=== PATIENT | female | born 1980 | race Caucasian/White ===

== ENCOUNTER 2016-09-15 07:51 | Inpatient (IN) | payer BC ==
[2016-09-15] MEDS ORDERED: Nalbuphine 20 MG/1 ML Amp IVPUSH PRN (10:02)
[2016-09-15] MEDS ORDERED: Lidocaine 1% 50 ML MDV INJECT ONE (10:02)
[2016-09-15] MEDS ORDERED: Sodium Chloride 0.9% 10 ML Syringe FLUSH PRN (10:02)
[2016-09-15] MEDS ORDERED: Oxytocin/Lactated Ringers 10 UNIT/1,000 ML BAG IV SCH (10:15)
[2016-09-15] MEDS: Lactated Ringers 1,000 ML IV SCH ×2 (11:24→13:00)
[2016-09-15] MEDS ORDERED: Bupivacaine 0.25% 10 ML SDV ONE (12:00)
[2016-09-15] MEDS ORDERED: fentaNYL 100 MCG/2 ML SDV ONE (13:00)
[2016-09-15] MEDS ORDERED: fentaNYL 100 MCG/2 ML SDV EPIDUR PRN (13:04)
[2016-09-15] MEDS ORDERED: ePHEDrine 50 MG/ML SDV IVPUSH PRN (13:04)
[2016-09-15] MEDS ORDERED: diphenhydrAMINE 50 MG/ML SDV IVPUSH PRN (13:04)
[2016-09-15] MEDS ORDERED: Bupivacaine/fentaNYL/NS 100 ML Bag EPIDUR SCH (13:15)
--- NOTE | 2016-09-15 13:26 | PCM.PREANE ---
Preanesthetic Assessment - Anesthesia/Transfusion/Family Hx Anesthesia History: Prior Anesthesia Without Reaction Family History of Anesthesia Reaction: No Transfusion History: No Prior Transfusion(s) - Review of Systems General: No Symptoms Pulmonary: No Symptoms Cardiovascular: No Symptoms Gastrointestinal: Nausea Neurological: No Symptoms Other: Reports: None - Physical Assessment O2 Sat by Pulse Oximetry: 98 Respiratory Rate: 16 Vital Signs: Last Vital Signs Temp 98.7 F 09/15/16 10:20 Pulse 81 09/15/16 10:20 Resp 16 09/15/16 10:20 BP 116/76 09/15/16 10:20 Pulse Ox 98 09/15/16 10:20 Height: 5 ft 6 in Weight: 79.56 kg ASA Class: 2 Mental Status: Alert & Oriented x3 Airway Class: Mallampati = 1 Dentition: Reports: Normal Dentition Thyro-Mental Finger Breadths: 3 Mouth Opening Finger Breadths: 3 ROM/Head Extension: Full Lungs: Clear to auscultation, Normal respiratory effort Cardiovascular: Regular Rate, Regular Rhythm - Lab Values: Laboratory Last Values WBC 9.02 K/mm3 (3.98-10.04) 09/15/16 10:20 RBC 4.42 M/mm3 (3.98-5.22) 09/15/16 10:20 Hgb 13.3 gm/L (11.2-15.7) 09/15/16 10:20 Hct 38.9 % (34.1-44.9) 09/15/16 10:20 MCV 88.0 fl (79.4-94.8) 09/15/16 10:20 MCH 30.1 pg (25.6-32.2) 09/15/16 10:20 MCHC 34.2 g/dl (32.2-35.5) 09/15/16 10:20 RDW Std Deviation 42.4 fL (36.4-46.3) 09/15/16 10:20 Plt Count 183 K/mm3 (182-369) 09/15/16 10:20 MPV 10.6 fl (9.4-12.3) 09/15/16 10:20 Neut % (Auto) 71.2 % (34.0-71.1) H 09/15/16 10:20 Lymph % (Auto) 18.7 % (19.3-51.7) L 09/15/16 10:20 [place] % (Auto) 8.9 % (4.7-12.5) 09/15/16 10:20 Eos % (Auto) 0.4 (0.7-5.8) L 09/15/16 10:20 Baso % (Auto) 0.2 % (0.1-1.2) 09/15/16 10:20 Neut # (Auto) 6.42 K/mm3 (1.56-6.13) H 09/15/16 10:20 Lymph # (Auto) 1.69 K/mm3 (1.18-3.74) 09/15/16 10:20 [place] # (Auto) 0.80 K/mm3 (0.24-0.36) H 09/15/16 10:20 Eos # (Auto) 0.04 K/mm3 (0.04-0.36) 09/15/16 10:20 Baso # (Auto) 0.02 K/mm3 (0.01-0.08) 09/15/16 10:20 Urine Color Yellow (Yellow) 09/15/16 09:06 Urine Appearance Slt cloudy (Clear) H 09/15/16 09:06 Urine pH 6.5 (5.0-8.0) 09/15/16 09:06 Ur Specific [place] 1.020 (1.005-1.030) 09/15/16 09:06 Urine Protein Trace (Negative) H 09/15/16 09:06 Urine Glucose (UA) Negative (Negative) 09/15/16 09:06 Urine Ketones Negative (Negative) 09/15/16 09:06 Urine Occult Blood 2+ (Negative) H 09/15/16 09:06 Urine Nitrite Negative (Negative) 09/15/16 09:06 Urine Bilirubin Negative (Negative) 09/15/16 09:06 Urine Urobilinogen 0.2 (0.2-1.0) 09/15/16 09:06 Ur Leukocyte Esterase 2+ (Negative) H 09/15/16 09:06 - Allergies Allergies/Adverse Reactions: Allergies Allergy/AdvReac Type Severity Reaction Status Date / Time Penicillins Allergy Rash Verified 09/15/16 12:21 - Blood Blood Available: No - Acknowledgements Anesthesia Type Planned: Epidural Pt an Appropriate Candidate for the Planned Anesthesia: Yes Alternatives and Risks of Anesthesia Discussed w Pt/Guardian: Yes Pt/Guardian Understands and Agrees with Anesthesia Plan: Yes PreAnesthesia Questionnaire Cardiovascular History: Reports: None Respiratory History: Reports: None Gastrointestinal History: Reports: GERD (with preg) 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: , Other (see below) : 2 (39 weeks) Para: 1 Other OB/BYN History: Used clomid for current Musculoskeletal History: Reports: None - Past Surgical History Other HEENT Surgeries/Procedures: wisdom teeth extraction Other Musculoskeletal Surgeries/Procedures:: knee surgery x 2 - SUBSTANCE USE Smoking Status *Q: Never Smoker Tobacco Use Within Last Twelve Months: No Second Hand Smoke Exposure: No Days Per Week of Alcohol Use: 2 Recreational Drug Use History: No - HOME MEDS Home Medications: Home Meds Vit No.124/Iron/FA [ Vitamin Tablet] 1 each PO DAILY 03/07/15 [ History] Ondansetron [Zofran ODT] 4 mg PO Q4H 09/15/16 [History] Promethazine [Phenergan] 0.5 ml TOP ASDIRECTED 09/15/16 [History] - CURRENT (IN HOUSE) MEDS Current Meds: Current Medications Diphenhydramine HCl (Benadryl) 25 mg IVPUSH Q6H PRN PRN Reason: pruritis Ephedrine Sulfate (Ephedrine Sulfate) 5 mg IVPUSH ASDIRECTED PRN PRN Reason: Hypotension Fentanyl (Sublimaze) 100 mcg EPIDUR Q3H PRN PRN Reason: Pain Fentanyl/Bupivacaine HCl (Fentanyl/Bupivacaine/Ns 2 Mcg-0.125% 100 Ml) 100 ml EPIDUR ASDIRECTED [facility] Lactated Ringer's (Ringers, Lactated) 1,000 mls @ 100 mls/hr IV ASDIRECTED [facility] Last Admin: 09/15/16 13:00 Dose: 100 mls/hr Oxytocin/Lactated Ringer's (Pitocin In Lr 10 Units/1,000 Ml) 10 unit in 1,000 mls @ 500 mls/hr IV TITRATE SUJEY Vancomycin HCl 1 gm/ Sodium (Chloride) 250 mls @ 250 mls/hr IV Q12H [facility] Last Admin: 09/15/16 11:25 Dose: 250 mls/hr Nalbuphine HCl (Nubain) 10 mg IVPUSH Q2H PRN PRN Reason: Pain (moderate 4-6) Sodium Chloride (Saline Flush) 10 ml FLUSH ASDIRECTED PRN PRN Reason: Keep Vein Open Discontinued Medications Fentanyl (Sublimaze) Confirm Administered Dose 100 mcg .ROUTE .STK-MED ONE Stop: 09/15/16 13:01 Lidocaine HCl (Xylocaine 1%) 20 ml INJECT ONETIME ONE Stop: 09/15/16 10:03
--- NOTE | 2016-09-15 18:05 | PCM.LDHP ---
L&D History of Present Illness - General Date of Service: 09/15/16 Admit Problem/Dx: Patient Status Order with Admit Dx/Problem 09/15/16 10:02 Patient Status [ADT] Routine Admission Diagnosis/Problem Admission Diagnosis/Problem Normal labor 09/15/16 17:56 38-6/7 week intrauterine , early active labor, advanced cervical dilation of 6 cm/90% effaced/-3/posterior/very soft Source of Information: Patient History Limitations: Reports: No limitations - History of Present Illness Introduction:: Jessi is a 35-year-old 2 para 1001 white female was admitted on 2016 in early labor with advanced cervical dilation. Her cervix was found to be 6 cm, 90% effaced, -3 station, posterior position and very soft in clinic for visit this morning. She is having irregular contractions. She was sent to labor and delivery to undergo her artificial rupture membranes for augmentation of labor. 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 SMITH is 09/23/2016 is based on a certain last was restarted 12/18/2015. Patient had definite last menstrual period onset. She is not using any control time conception. She had menarche at age 16. Cycles Q6 weeks. HCG was positive on 01/13/2016. Patient has one previous delivery on 03/07/2015 at 39-4/7 weeks gestational age. 7 lbs. 14 oz. female infant born via spontaneous vaginal delivery. course has been relatively unremarkable. She had an at number depression screen score of 2 on 05/13/2016. She declined genetic screening. Group B strep screen was positive, patient is allergic to penicillin from which she gets a rash, the group B strep is resistant to clindamycin but susceptible to vancomycin. Patient desired epidural in labor and delivery. She plans to breast-feed. The patient was seen early in the at approximately 11 weeks gestational age on 03/04/2006. She was seen on a regular basis made good fundal height growth. Her vital signs remained stable throughout the course. Her weight gain was from 155 pounds to 175 pounds for a 20 pound gain. Laboratory testing and included a blood type of O+. Negative antibody screen. They with a pursestring of visit were 248,000. She is rubella immune. RPR is nonreactive. Urine culture was unremarkable. Hepatitis B and HIV assays were negative. Her second trimester labs included a hemoglobin of 12.6. MCV was 91.6. Platelets were 189,000. Diabetic screening test was 1 16 mg/dL. Group B strep screen was positive as above. Allergies: penicillin which causes a rash Medications: 1. Zofran when necessary for nausea 2. vitamins daily 3. Her meds E. and topical gel for nausea when necessary. Past medical history: 1. Secondary infertility 2. Normal spontaneous vaginal delivery in 2014. Past surgical history: 1. Knee surgery on the left and right in 2000 2013 respectively 2. [place] tooth extraction 2001 Family history: Maternal uncle with mild cognitive challenges. Mother is alive with hyperlipidemia and paroxysmal atrial fibrillation. Father is alive and well. One brother and 2 sisters are alive and well. Maternal grandmother is alive with paroxysmal atrial fibrillation. Paternal grandfather is secondary to alcohol abuse. Paternal grandmother is alive with depression. Paternal grandfather secondary to etiopathic emphysema. One daughter is alive and well. Social history: patient is . is Colin. 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 She is not using significant amounts of alcohol, drugs or tobacco. She lives in [place]. Review of systems: Skin-negative HEENT-negative Cardiovascular-negative Rester rate-normal Breasts-changes secondary to only GI-normal -changes associated with Musculoskeletal-normal Neurological system-unremarkable Physical exam: Height is 5 feet 6. Pregravid weight is 155. Weight today was 175. Blood pressure today 116/70. heart rate 1:30. In general the patient is a well-developed well-nourished pleasant female stated age in no acute distress. Skin warm and dry without lesions. Cleared of the soft in all ashley. HEENT, neck and back within normal limits. Cardiovascular exam shows regular rate and rhythm without murmurs. Lungs are clear with good breath sounds in all ashley. Breasts exam is deferred. Patient does plan to nurse. Fundal height is 38 cm consistent with dates. Cervix is as described above. Extremities show minimal edema Neurological exam grossly within normal limits Pain Score: 8 - Related Data Allergies/Adverse Reactions: Allergies Allergy/AdvReac Type Severity Reaction Status Date / Time Penicillins Allergy Rash Verified 09/15/16 12:21 Home Medications: Home Meds Vit No.124/Iron/FA [ Vitamin Tablet] 1 each PO DAILY 03/07/15 [ History] Ondansetron [Zofran ODT] 4 mg PO Q4H 09/15/16 [History] Promethazine [Phenergan] 0.5 ml TOP ASDIRECTED 09/15/16 [History] Past Medical History Cardiovascular History: Reports: None Respiratory History: Reports: None Gastrointestinal History: Reports: GERD (with preg) 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: , Other (see below) Other OB/BYN History: Used clomid for current Musculoskeletal History: Reports: None - Past Surgical History Other HEENT Surgeries/Procedures: wisdom teeth extraction Other Musculoskeletal Surgeries/Procedures:: knee surgery x 2 Social & Family History - Family History Family Medical History: Noncontributory - Tobacco Use Smoking Status *Q: Never Smoker Second Hand Smoke Exposure: No - Caffeine Use Caffeine Use: Reports: Soda Other Caffeine Use: one daily - Alcohol Use Days Per Week of Alcohol Use: 2 - Recreational Drug Use Recreational Drug Use: No H&P Review of Systems - Review of Systems: Review Of Systems: See Below L&D Exam - Exam Exam: See Below - Vital Signs Vital Signs: Last Vital Signs Temp 37.1 C 09/15/16 10:20 Pulse 81 09/15/16 10:20 Resp 16 09/15/16 13:26 BP 116/76 09/15/16 10:20 Pulse Ox 98 09/15/16 13:26 Weight: 79.56 kg - Patient Data Lab Results last 24 hrs: Laboratory Results - last 24 hr 09/15/16 09/15/16 Range/Units 09:06 10:20 WBC 9.02 (3.98-10.04) K/mm3 RBC 4.42 (3.98-5.22) M/mm3 Hgb 13.3 (11.2-15.7) gm/L Hct 38.9 (34.1-44.9) % MCV 88.0 (79.4-94.8) fl MCH 30.1 (25.6-32.2) pg MCHC 34.2 (32.2-35.5) g/dl RDW Std Deviation 42.4 (36.4-46.3) fL Plt Count 183 (182-369) K/mm3 MPV 10.6 (9.4-12.3) fl Neut % (Auto) 71.2 H (34.0-71.1) % Lymph % (Auto) 18.7 L (19.3-51.7) % [place] % (Auto) 8.9 (4.7-12.5) % Eos % (Auto) 0.4 L (0.7-5.8) Baso % (Auto) 0.2 (0.1-1.2) % Neut # (Auto) 6.42 H (1.56-6.13) K/mm3 Lymph # (Auto) 1.69 (1.18-3.74) K/mm3 [place] # (Auto) 0.80 H (0.24-0.36) K/mm3 Eos # (Auto) 0.04 (0.04-0.36) K/mm3 Baso # (Auto) 0.02 (0.01-0.08) K/mm3 Urine Color Yellow (Yellow) Urine Appearance Slt cloudy H (Clear) Urine pH 6.5 (5.0-8.0) Ur Specific [place] 1.020 (1.005-1.030) Urine Protein Trace H (Negative) Urine Glucose (UA) Negative (Negative) Urine Ketones Negative (Negative) Urine Occult Blood 2+ H (Negative) Urine Nitrite Negative (Negative) Urine Bilirubin Negative (Negative) Urine Urobilinogen 0.2 (0.2-1.0) Ur Leukocyte Esterase 2+ H (Negative) Result Diagrams: 09/15/16 10:20 Problem List Initiated/Reviewed/Updated: Yes Orders Last 24hrs: Active Orders 24 hr Category Date Time Status Patient Status [ADT] Routine ADT 09/15/16 10:02 Active Activity as Tolerated [RC] PFP Care 09/15/16 10:02 Active Communication Order [RC] ASDIRECTED Care 09/15/16 10:02 Active Notify Provider [RC] ASDIRECTED Care 09/15/16 13:04 Active Notify Provider [RC] PFP Care 09/15/16 10:02 Active Notify Provider [RC] PRN Care 09/15/16 10:02 Active Vital Signs [RC] 04,12,20 Care 09/15/16 10:02 Active Regular Diet [DIET] Diet 09/15/16 Lunch Active Bupivacaine/fentaNYL/NS [fentaNYL/Bupivacaine/NS 2 MCG- Med 09/15/16 13:15 Active 0.125% 100 ML] 100 ml EPIDUR ASDIRECTED Lactated Ringers [Ringers, Lactated] 1,000 ml Med 09/15/16 10:15 Active IV ASDIRECTED Nalbuphine [Nubain] Med 09/15/16 10:02 Active 10 mg IVPUSH Q2H PRN Oxytocin/Lactated Ringers [Pitocin in LR 10 Units/1,000 Med 09/15/16 10:15 Active ML] 10 unit in 1,000 ml IV TITRATE Sodium Chloride 0.9% [Saline Flush] Med 09/15/16 10:02 Active 10 ml FLUSH ASDIRECTED PRN Vancomycin [Vancocin] 1 gm Med 09/15/16 10:15 Active Sodium Chloride 0.9% [Normal Saline] 250 ml IV Q12H diphenhydrAMINE [Benadryl] Med 09/15/16 13:04 Active 25 mg IVPUSH Q6H PRN ePHEDrine [ePHEDrine Sulfate] Med 09/15/16 13:04 Active 5 mg IVPUSH ASDIRECTED PRN fentaNYL [Sublimaze] Med 09/15/16 13:04 Active 100 mcg EPIDUR Q3H PRN Electronic Heart Tones Ext w TOCO [WOMSER] Oth 09/15/16 10:02 Ordered Routine Electronic Heart Tones Internal [WOMSER] Per Unit Oth 09/15/16 10:02 Ordered Routine Peripheral IV Insertion Adult [OM.PC] Routine Oth 09/15/16 10:02 Ordered Resuscitation Status Routine Resus Stat 09/15/16 10:02 Ordered Medication Orders Diphenhydramine HCl (Benadryl) 25 mg IVPUSH Q6H PRN PRN Reason: pruritis Ephedrine Sulfate (Ephedrine Sulfate) 5 mg IVPUSH ASDIRECTED PRN PRN Reason: Hypotension Fentanyl (Sublimaze) 100 mcg EPIDUR Q3H PRN PRN Reason: Pain Last Admin: 09/15/16 13:35 Dose: 100 mcg Fentanyl/Bupivacaine HCl (Fentanyl/Bupivacaine/Ns 2 Mcg-0.125% 100 Ml) 100 ml EPIDUR ASDIRECTED [facility] Last Admin: 09/15/16 13:35 Dose: 100 ml Lactated Ringer's (Ringers, Lactated) 1,000 mls @ 100 mls/hr IV ASDIRECTED [facility] Last Admin: 09/15/16 13:00 Dose: 100 mls/hr Infusion: 09/15/16 13:00 Dose: 100 mls/hr Admin: 09/15/16 11:24 Dose: 100 mls/hr Oxytocin/Lactated Ringer's (Pitocin In Lr 10 Units/1,000 Ml) 10 unit in 1,000 mls @ 500 mls/hr IV TITRATE [facility] Last Admin: 09/15/16 14:28 Dose: 500 mls/hr Vancomycin HCl 1 gm/ Sodium (Chloride) 250 mls @ 250 mls/hr IV Q12H [facility] Last Admin: 09/15/16 11:25 Dose: 250 mls/hr Nalbuphine HCl (Nubain) 10 mg IVPUSH Q2H PRN PRN Reason: Pain (moderate 4-6) Sodium Chloride (Saline Flush) 10 ml FLUSH ASDIRECTED PRN PRN Reason: Keep Vein Open Assessment/Plan Comment:: Assessment: 1. 38-6/7 week intrauterine , early active labor, advanced cervical dilation 2. Group B strep screen positive-penicillin allergic-GBS resistant to clindamycin-needs vancomycin for prophylaxis 3. Plans to nurse. 4. Open epidural in labor and delivery. Plan: 1. Anticipate normal spontaneous vaginal delivery 2. Vancomycin for group B strep prophylaxis 3. Intact monitoring 4. Epidural when necessary 5. Support nursing decision.
--- NOTE | 2016-09-15 18:10 | PCM.SN ---
- Free Text/Narrative Note: Delivery note: Jessi is a 35-year-old 2 now para 2002 white female who was seen in clinic today with early contractions. She's on the sixth and is dilated, 90% effaced, -3 station, posterior position, very soft, cephalic presentation. She was sent to labor and delivery at time she was started on IV antibiotics of vancomycin. The patient then had artificial rupture membranes and progressed rapidly to complete. She delivered a viable, linares, male in an occiput anterior position at 1428 hours on 09/15/2016. Baby weight 3250 g (7 pounds 2.6 ounces), had Apgars of 7 and 9 and was 20 inches in length. The baby's nose and mouth were bulb suctioned and he was placed on patient's abdomen. Cord was clamped x2 and cut by the father. Cord blood was obtained. Placenta delivered in a [place] presentation. It appeared to be intact and complete. There was a three-vessel cord. Pitocin was administered after delivery of the baby via the IV. Estimated blood loss 100 cc. Patient's condition: Good
[2016-09-15] MEDS: Benzocaine/Cetylpyridinium/Menthol Lozenge MUCMEM PRN (20:31)
[2016-09-15] MEDS: Ibuprofen 600 MG Tab PO PRN (21:53)
[2016-09-16] MEDS: Benzocaine/Cetylpyridinium/Menthol Lozenge MUCMEM PRN ×3 (03:11→22:50)
[2016-09-16] MEDS: Ibuprofen 600 MG Tab PO PRN ×3 (03:12→19:03)
--- NOTE | 2016-09-16 06:28 | PCM.SN ---
- Free Text/Narrative Note: The patient is doing fine this morning. She has minimal lochia. She is ambulating well. She is voiding without concerns. Breast-feeding was going fine. Patient is afebrile. Vital signs stable. Abdomen is soft, uterus is firm and at the umbilicus. Uterus is nontender. Lower extremities without significant edema or other concerns. Assessment/plan: day 1. Doing well. Group B strep screen positive-1 dose of antibiotics-vancomycin. We'll have patient states all tomorrow for full 2 days of evaluation because of group B-positive status. Recommend routine cares.
--- NOTE | 2016-09-16 08:08 | PCM48HPAN ---
Post Anesthesia Note - EVALUATION WITHIN 48HRS OF ANESTHETIC Vital Signs in Normal Range: Yes Patient Participated in Evaluation: Yes Respiratory Function Stable: Yes Airway Patent: Yes Cardiovascular Function Stable: Yes Hydration Status Stable: Yes Pain Control Satisfactory: Yes Nausea and Vomiting Control Satisfactory: Yes Mental Status Recovered: Yes
[2016-09-16] MEDS ORDERED: Acetaminophen 325 MG Tab PO PRN (14:07)
[2016-09-17] MEDS: Ibuprofen 600 MG Tab PO PRN ×2 (03:45→11:07)
[2016-09-17] MEDS: Benzocaine/Cetylpyridinium/Menthol Lozenge MUCMEM PRN ×3 (03:47→11:07)
--- NOTE | 2016-09-17 07:09 | PCM.PNPP ---
- General Info Date of Service: 09/17/16 Functional Status: Reports: pain controlled, tolerating diet, ambulating, urinating - Review of Systems General: Reports: No Symptoms Pulmonary: Reports: no symptoms Cardiovascular: Reports: No Symptoms Gastrointestinal: Reports: No symptoms Genitourinary: Reports: no symptoms Musculoskeletal: Reports: no symptoms Neurological: Reports: No Symptoms - Patient Data Vital Signs - most recent: Last Vital Signs Temp 36.6 C 09/16/16 20:58 Pulse 59 L 09/16/16 20:58 Resp 16 09/16/16 20:58 BP 97/79 09/16/16 20:58 Pulse Ox 99 09/16/16 20:58 Weight - most recent: 79.56 kg Lab Results - last 24 hrs: Laboratory Results - last 24 hr 09/16/16 Range/Units 17:28 WBC 7.45 (3.98-10.04) K/mm3 RBC 4.11 (3.98-5.22) M/mm3 Hgb 12.4 (11.2-15.7) gm/L Hct 36.8 (34.1-44.9) % MCV 89.5 (79.4-94.8) fl MCH 30.2 (25.6-32.2) pg MCHC 33.7 (32.2-35.5) g/dl RDW Std Deviation 43.0 (36.4-46.3) fL Plt Count 173 L (182-369) K/mm3 MPV 10.4 (9.4-12.3) fl Med Orders - Current: Current Medications Acetaminophen (Tylenol) 650 mg PO Q4H PRN PRN Reason: Pain Last Admin: 09/16/16 14:35 Dose: 650 mg Benzocaine/Menthol (Cepacol Sore Throat) 1 lozenge MUCMEM Q2H PRN PRN Reason: Sore Throat Last Admin: 09/17/16 03:47 Dose: 1 lozenge Ephedrine Sulfate (Ephedrine Sulfate) 5 mg IVPUSH ASDIRECTED PRN PRN Reason: Hypotension Fentanyl (Sublimaze) 100 mcg EPIDUR Q3H PRN PRN Reason: Pain Last Admin: 09/15/16 13:35 Dose: 100 mcg Fentanyl/Bupivacaine HCl (Fentanyl/Bupivacaine/Ns 2 Mcg-0.125% 100 Ml) 100 ml EPIDUR ASDIRECTED [facility] Last Admin: 09/15/16 13:35 Dose: 100 ml Lactated Ringer's (Ringers, Lactated) 1,000 mls @ 100 mls/hr IV ASDIRECTED [facility] Last Admin: 09/15/16 13:00 Dose: 100 mls/hr Oxytocin/Lactated Ringer's (Pitocin In Lr 10 Units/1,000 Ml) 10 unit in 1,000 mls @ 500 mls/hr IV TITRATE [facility] Last Admin: 09/15/16 14:28 Dose: 500 mls/hr Ibuprofen (Motrin) 600 mg PO Q6H PRN PRN Reason: Pain Last Admin: 09/17/16 03:45 Dose: 600 mg Nalbuphine HCl (Nubain) 10 mg IVPUSH Q2H PRN PRN Reason: Pain (moderate 4-6) Sodium Chloride (Saline Flush) 10 ml FLUSH ASDIRECTED PRN PRN Reason: Keep Vein Open Discontinued Medications Diphenhydramine HCl (Benadryl) 25 mg IVPUSH Q6H PRN PRN Reason: pruritis Fentanyl (Sublimaze) Confirm Administered Dose 100 mcg .ROUTE .STK-MED ONE Stop: 09/15/16 13:01 Last Admin: 09/15/16 15:28 Dose: Not Given Vancomycin HCl 1 gm/ Sodium (Chloride) 250 mls @ 250 mls/hr IV Q12H [facility] Last Admin: 09/15/16 11:25 Dose: 250 mls/hr Lidocaine HCl (Xylocaine 1%) 20 ml INJECT ONETIME ONE Stop: 09/15/16 10:03 Last Admin: 09/15/16 15:28 Dose: Not Given - Infant Interaction Disposition, : [place] to Nursery Interaction: Holding Infant Feeding: Breastfed ; Nursed Well Support Person: - Recovery Exam Fundal Tone: Firm Fundal Level: 2 Fingerbreadths Below Umbilicus Fundal Placement: Midline Lochia Amount: Scant Lochia Color: Rubra/Red Perineum Description: Intact, Minimal Bruising/Swelling Episiotomy/Laceration: None Bladder Status: Voiding Urinary Elimination: Voided - Exam General: alert, oriented, cooperative Abdomen: soft, no tenderness Extremities: no edema Skin: warm, dry, intact - Problem List & Annotations (1) 38 weeks gestation of SNOMED Code(s): 15731114 Code(s): Z3A.38 - 38 WEEKS GESTATION OF Status: Acute Current Visit: Yes (2) Vaginal delivery SNOMED Code(s): 081531736 Code(s): O80 - ENCOUNTER FOR FULL-TERM UNCOMPLICATED DELIVERY Status: Acute Current Visit: Yes - Problem List Review Problem List Initiated/Reviewed/Updated: Yes - My Orders Last 24 Hours: My Active Orders 09/16/16 14:07 Acetaminophen [Tylenol] 650 mg PO Q4H PRN - Assessment Assessment:: 35 y/o PPD#2 from - Plan Plan:: * Routine cares * Discharge home today
--- NOTE | 2016-09-17 07:10 | PCM.DCSUM1 ---
Discharge Summary - Discharge Data Discharge Date: 09/17/16 Discharge Disposition: Home, Self-Care 01 Condition: Good - Patient Summary/Data Complications: None Consults: None Recommended Follow-up Testing/Procedures: Follow up with Dr. Cueva in 5-6 weeks for check Hospital Course: 35 y/o admitted at 38 6/7 wks with advanced cervical dilation. She was AROM'd and then had a fast progression to complete dilation and underwent an uncomplicated . See delivery note. she did well and was discharged home on PPD#2. - Patient Instructions Diet: Regular Diet as Tolerated Activity: As Tolerated Driving: May Drive Today Showering/Bathing: May Shower Showering/Bathing, Other: May Bathe Notify Provider of: Fever, Increased Pain, Swelling and Redness, Drainage, Nausea and/or Vomiting - Discharge Plan Home Medications: Home Meds Vit No.124/Iron/FA [ Vitamin Tablet] 1 each PO DAILY 03/07/15 [ History] Referrals: Reddy Cueva MD [Physician] - (5-6 weeks for check ) - Discharge Summary/Plan Comment DC Time >30 min.: No - Patient Data Vitals - Most Recent: Last Vital Signs Temp 36.6 C 09/16/16 20:58 Pulse 59 L 09/16/16 20:58 Resp 16 09/16/16 20:58 BP 97/79 09/16/16 20:58 Pulse Ox 99 09/16/16 20:58 Weight - Most Recent: 79.56 kg Lab Results - Last 24 hrs: Laboratory Results - last 24 hr 09/16/16 Range/Units 17:28 WBC 7.45 (3.98-10.04) K/mm3 RBC 4.11 (3.98-5.22) M/mm3 Hgb 12.4 (11.2-15.7) gm/L Hct 36.8 (34.1-44.9) % MCV 89.5 (79.4-94.8) fl MCH 30.2 (25.6-32.2) pg MCHC 33.7 (32.2-35.5) g/dl RDW Std Deviation 43.0 (36.4-46.3) fL Plt Count 173 L (182-369) K/mm3 MPV 10.4 (9.4-12.3) fl Med Orders - Current: Current Medications Acetaminophen (Tylenol) 650 mg PO Q4H PRN PRN Reason: Pain Last Admin: 09/16/16 14:35 Dose: 650 mg Benzocaine/Menthol (Cepacol Sore Throat) 1 lozenge MUCMEM Q2H PRN PRN Reason: Sore Throat Last Admin: 09/17/16 03:47 Dose: 1 lozenge Ephedrine Sulfate (Ephedrine Sulfate) 5 mg IVPUSH ASDIRECTED PRN PRN Reason: Hypotension Fentanyl (Sublimaze) 100 mcg EPIDUR Q3H PRN PRN Reason: Pain Last Admin: 09/15/16 13:35 Dose: 100 mcg Fentanyl/Bupivacaine HCl (Fentanyl/Bupivacaine/Ns 2 Mcg-0.125% 100 Ml) 100 ml EPIDUR ASDIRECTED [facility] Last Admin: 09/15/16 13:35 Dose: 100 ml Lactated Ringer's (Ringers, Lactated) 1,000 mls @ 100 mls/hr IV ASDIRECTED [facility] Last Admin: 09/15/16 13:00 Dose: 100 mls/hr Oxytocin/Lactated Ringer's (Pitocin In Lr 10 Units/1,000 Ml) 10 unit in 1,000 mls @ 500 mls/hr IV TITRATE [facility] Last Admin: 09/15/16 14:28 Dose: 500 mls/hr Ibuprofen (Motrin) 600 mg PO Q6H PRN PRN Reason: Pain Last Admin: 09/17/16 03:45 Dose: 600 mg Nalbuphine HCl (Nubain) 10 mg IVPUSH Q2H PRN PRN Reason: Pain (moderate 4-6) Sodium Chloride (Saline Flush) 10 ml FLUSH ASDIRECTED PRN PRN Reason: Keep Vein Open Discontinued Medications Diphenhydramine HCl (Benadryl) 25 mg IVPUSH Q6H PRN PRN Reason: pruritis Fentanyl (Sublimaze) Confirm Administered Dose 100 mcg .ROUTE .STK-MED ONE Stop: 09/15/16 13:01 Last Admin: 09/15/16 15:28 Dose: Not Given Vancomycin HCl 1 gm/ Sodium (Chloride) 250 mls @ 250 mls/hr IV Q12H [facility] Last Admin: 09/15/16 11:25 Dose: 250 mls/hr Lidocaine HCl (Xylocaine 1%) 20 ml INJECT ONETIME ONE Stop: 09/15/16 10:03 Last Admin: 09/15/16 15:28 Dose: Not Given *Q Meaningful Use (DIS) - VTE *Q VTE Criteria *Q: - Stroke *Q Stroke Criteria *Q: - AMI *Q AMI Criteria *Q:
[2016-09-17 11:17] VITALS: BP 124/87
== END 2016-09-17 11:10 | disposition home or self-care (01) | DRG 560 ==
LOC: JD.OB 07:51 → JD.WOMH 07:51 → JD.OB 09:45 → JD.WOMH 10:01 → JD.OB 10:02 → OBSVTOIN 14:28
PROVIDERS: ADMIT Obstetrics & Gynecology; ATTEND Obstetrics & Gynecology
PROC: 10E0XZZ Delivery of Products of Conception, External Approach (ICD-10-PCS; principal; 2016-09-15)
PROC: 10907ZC Drainage of Amniotic Fluid, Therapeutic from Products of Conception, Via Natural or Artificial Opening (ICD-10-PCS; 2016-09-15)
PROC: 00HU33Z Insertion of Infusion Device into Spinal Canal, Percutaneous Approach (ICD-10-PCS; 2016-09-15)
PROC: 3E0R3CZ (ICD-10-PCS; 2016-09-15)
DX: O99.824 Streptococcus B carrier state complicating childbirth (principal); Z3A.39 39 weeks gestation of pregnancy; Z37.0 Single live birth; Z88.0 Allergy status to penicillin
CPT/HCPCS: 01967; 36415; 81003; 85025; 85027; A9270-GY; J2590; J3010; J3370; J7050; J7120

== ENCOUNTER 2016-09-25 11:38 | Inpatient (IN) | payer BC ==
[2016-09-25] MEDS ORDERED: cefOXitin 2 GM in Sodium Chloride 0.9% 100 ML IV ONE (12:58)
--- NOTE | 2016-09-25 13:05 | PCM.SN ---
- Free Text/Narrative Note: ER Note: Patient admitted with endometritis O86.12 and pyrexia puerperal O86.4 SEE History and Physical
[2016-09-25] MEDS ORDERED: Misoprostol 200 MCG Tab PO ONE ×2 (13:14→15:23)
[2016-09-25] MEDS ORDERED: Lactated Ringers 500 ML IV ONE ×2 (13:15→15:23)
--- NOTE | 2016-09-25 13:16 | PCM.LDHP ---
L&D History of Present Illness - General Date of Service: 09/25/16 Admit Problem/Dx: Admission Diagnosis/Problem Admission Diagnosis/Problem Endometritis Source of Information: Patient History Limitations: Reports: No limitations - History of Present Illness Introduction:: 35-year-old , delivered on 09/15/16. GBS positive, delivered by Dr. Cueva. At 38 weeks 6 days estimated gestational age with SMITH of 09/23/16 present to [facility] with history of waking up this morning, approximate 5: 00 with fever, chills, and temperature at [place], clinic 101, point, elevated white count E. patient's has had a history of ureteral stones in the past. After her last delivery. The patient had low backache on her left side, moving around to the left lower quadrant and no increased bloody flow from the lochia. Patient did receive one dose of vancomycin during labor, but progress slowed rapidly. The second dose was not able to be given. Patient is, breast- feeding. She's had no breast tenderness other than engorgement as is time to feed. The baby. The patient has had no dysuria, frequency, or urgency. However, urine culture will be obtained as will lochia. Culture and swabs of the lochia for wet prep and aerobic, anaerobic, blood cultures also ordered. Patient has history of allergy to penicillin developing a rash. No history of anaphylaxis. I discussed with her that Mefoxin 2 grams IV and q6h would be a good antibiotic choic initially as possibly endometritis due to GBS. Patient aware of possible cross reaction with history of penicillin allergy and first dose will be given while in ER and patient observed for reaction for an hour before moving to [place]. Discussed with Dr Samuel and he agreed to watch patient while in ER. Improves with: Reports: None Worsens with: Reports: None Associated Symptoms: Reports: N - Related Data Allergies/Adverse Reactions: Allergies Allergy/AdvReac Type Severity Reaction Status Date / Time Penicillins Allergy Rash Verified 09/25/16 11:55 Home Medications: Home Meds Vit No.124/Iron/FA [ Vitamin Tablet] 1 each PO DAILY 03/07/15 [ History] Past Medical History Cardiovascular History: Reports: None Respiratory History: Reports: None Gastrointestinal History: Reports: [employer] History: Reports: , Other (see below) Other OB/BYN History: Used clomid for current Musculoskeletal History: Reports: None - Past Surgical History Other HEENT Surgeries/Procedures: wisdom teeth extraction Other Musculoskeletal Surgeries/Procedures:: knee surgery x 2 Social & Family History - Family History Family Medical History: Noncontributory - Tobacco Use Smoking Status *Q: Never Smoker Second Hand Smoke Exposure: No - Caffeine Use Caffeine Use: Reports: None Other Caffeine Use: one daily - Alcohol Use Days Per Week of Alcohol Use: 2 - Recreational Drug Use Recreational Drug Use: No H&P Review of Systems - Review of Systems: Review Of Systems: See Below General: Reports: fever, chills HEENT: Reports: no symptoms Pulmonary: Reports: No Symptoms Cardiovascular: Reports: no symptoms Gastrointestinal: Reports: No symptoms Genitourinary: Reports: pain, vaginal discharge Musculoskeletal: Reports: no symptoms Skin: Reports: no symptoms Psychiatric: Reports: no symptoms Neurological: Reports: No Symptoms Hematologic/Lymphatic: Reports: no symptoms Immunologic: Reports: no symptoms L&D Exam - Exam Exam: See Below - Vital Signs Vital Signs: Last Vital Signs Temp 98.9 F 09/25/16 11:49 Pulse 107 H 09/25/16 11:49 Resp 18 09/25/16 11:49 BP 132/90 09/25/16 11:49 Pulse Ox 98 09/25/16 11:49 Weight: 153 lb - OB Specific Fundal Height in cm: 14 (involuting normally) - Exam General: alert, oriented HEENT: Mucosa moist & pink Neck: supple, trachea midline Lungs: Clear to auscultation, Normal respiratory effort, Other (no evidence of mastitis no erythema or collection, there is engorgement but patient due to nurse) Cardiovascular: regular rate, regular rhythm Abdomen: normal bowel sounds, soft Genitourinary: Enlarged uterus (but involuting normally, slightly "boddy" and tender to palpation.) Back Exam: normal inspection, full range of motion (no CVA tenderness) Extremities: normal inspection Skin: warm (feels "hot" but normal temp in ER but elevated at [facility]), dry, intact Psychiatric: alert, normal affect, normal mood - Problem List (1) Puerperal endometritis, condition or complication SNOMED Code(s): 661545889 ICD Code: O86.12 - ENDOMETRITIS FOLLOWING DELIVERY Status: Acute Current Visit: Yes (2) Pyrexia, puerperal Status: Acute Current Visit: Yes Problem List Initiated/Reviewed/Updated: No Orders Last 24hrs: Active Orders 24 hr Category Date Time Status Patient Status Manage Transfer [TRANSFER] Routine ADT 09/25/16 12:46 Active Vit with Ca/FA/Iron [ Plus Iron] Med 09/26/16 09:00 Active 1 each PO DAILY cefOXitin [Mefoxin] 2 gm Med 09/25/16 12:58 Active Sodium Chloride 0.9% [Normal Saline] 100 ml IV ONETIME Medication Orders Cefoxitin Sodium 2 gm/ Sodium (Chloride) 100 mls @ 200 mls/hr IV ONETIME ONE Stop: 09/25/16 13:27 Prenat Multivit/[place]/Iron/Folic Ac ( Plus Iron) 1 each PO DAILY [facility] Assessment/Plan Comment:: Admit ([facility] [place] reviewed by Criss to confirm admission vs Observation) IV hydration and antibiotic treatment
[2016-09-25] MEDS ORDERED: cefOXitin 2 GM in Premix Bag 1 BAG IV ONE (13:32)
[2016-09-25] MEDS ORDERED: Ondansetron 4 MG/2 ML SDV IVPUSH PRN (15:23)
[2016-09-25] MEDS: Lactated Ringers 1,000 ML IV SCH (17:44)
[2016-09-25] MEDS ORDERED: cefOXitin 2 GM in Sodium Chloride 0.9% 100 ML IV SCH (19:00)
[2016-09-25] MEDS: Misoprostol 200 MCG Tab PO SCH (21:03)
[2016-09-25] MEDS: Acetaminophen 325 MG Tab PO PRN (21:03)
[2016-09-26] MEDS ORDERED: cefOXitin 2 GM in Premix Bag 1 BAG IV SCH ×4 (03:37→21:00)
[2016-09-26] MEDS: cefOXitin 2 GM in Premix Bag 1 BAG IV SCH ×5 (05:03→20:44)
[2016-09-26] MEDS: Misoprostol 200 MCG Tab PO SCH ×4 (05:03→20:45)
[2016-09-26] MEDS: Acetaminophen 325 MG Tab PO PRN ×2 (08:29→19:20)
[2016-09-26] MEDS: Lactated Ringers 1,000 ML IV SCH (08:30)
[2016-09-26] MEDS: Prenatal Multivitamin with Calcium/Folic Acid/Iron Tab PO SCH (08:31)
--- NOTE | 2016-09-26 10:56 | PCM.PN ---
- General Info Date of Service: 09/26/16 Admission Dx/Problem (Free Text): Admission Diagnosis/Problem Admission Diagnosis/Problem Endometritis Functional Status: Reports: pain controlled - Review of Systems General: Reports: Fever (last evening) HEENT: Reports: no symptoms Pulmonary: Reports: no symptoms Cardiovascular: Reports: No Symptoms Gastrointestinal: Reports: Diarrhea Genitourinary: Reports: no symptoms, other (uterus less tender) Musculoskeletal: Reports: no symptoms Skin: Reports: no symptoms Neurological: Reports: No Symptoms Psychiatric: Reports: no symptoms - Patient Data Vitals - most recent: Last Vital Signs Temp 99.6 F 09/26/16 08:29 Pulse 97 09/26/16 04:04 Resp 16 09/26/16 04:04 BP 112/67 09/26/16 04:04 Pulse Ox 98 09/26/16 04:04 Weight - most recent: 158 lb 9.6 oz I&O - last 24 hours: Intake & Output 09/25/16 09/26/16 09/26/16 22:59 06:59 14:59 Intake Total 300 325 240 Output Total 1000 Balance 300 -675 240 [place] Results last 24 hrs: Microbiology 09/25/16 13:36 Aerobic Blood Culture - Preliminary Blood - Venous - Lab Draw Gram Positive Cocci In Chains Med Orders - Current: Current Medications Acetaminophen (Tylenol) 650 mg PO Q4H PRN PRN Reason: Fever Last Admin: 09/26/16 08:29 Dose: 650 mg Lactated Ringer's (Ringers, Lactated) 1,000 mls @ 150 mls/hr IV ASDIRECTED [facility] Last Admin: 09/26/16 08:30 Dose: 150 mls/hr Cefoxitin Sodium 2 gm/ Premix 50 mls @ 100 mls/hr IV Q6H [facility] Last Admin: 09/26/16 08:28 Dose: 100 mls/hr Misoprostol (Cytotec) 200 mcg PO Q6H [facility] Last Admin: 09/26/16 08:29 Dose: 200 mcg Ondansetron HCl (Zofran) 4 mg IVPUSH Q4H PRN PRN Reason: Nausea Prenat Multivit/[place]/Iron/Folic Ac ( Plus Iron) 1 each PO DAILY [facility] Last Admin: 09/26/16 08:31 Dose: Not Given Discontinued Medications Cefoxitin Sodium 2 gm/ Sodium (Chloride) 100 mls @ 200 mls/hr IV ONETIME ONE Stop: 09/25/16 13:27 Last Admin: 09/25/16 16:09 Dose: Not Given Lactated Ringer's (Ringers, Lactated) 500 mls @ 500 mls/hr IV .BOLUS ONE Stop: 09/25/16 14:14 Last Admin: 09/25/16 13:34 Dose: 500 mls/hr Cefoxitin Sodium 2 gm/ Premix 50 mls @ 100 mls/hr IV ONETIME ONE Stop: 09/25/16 14:01 Last Admin: 09/25/16 13:43 Dose: 100 mls/hr Lactated Ringer's (Ringers, Lactated) 500 mls @ 500 mls/hr IV .BOLUS ONE Stop: 09/25/16 16:22 Last Admin: 09/25/16 16:08 Dose: Not Given Cefoxitin Sodium 2 gm/ Sodium (Chloride) 100 mls @ 200 mls/hr IV Q6H [facility] Last Admin: 09/25/16 21:11 Dose: Not Given Cefoxitin Sodium 2 gm/ Premix 50 mls @ 100 mls/hr IV Q6HR [facility] Last Admin: 09/25/16 21:03 Dose: 100 mls/hr Cefoxitin Sodium 2 gm/ Premix 50 mls @ 100 mls/hr IV Q6HR [facility] Cefoxitin Sodium 2 gm/ Premix 50 mls @ 100 mls/hr IV Q6HR [facility] Cefoxitin Sodium 2 gm/ Premix 50 mls @ 100 mls/hr IV Q6HR [facility] Last Admin: 09/26/16 06:40 Dose: Not Given Cefoxitin Sodium 2 gm/ Premix 50 mls @ 100 mls/hr IV Q6HR [facility] Misoprostol (Cytotec) 200 mcg PO ONETIME ONE Stop: 09/25/16 13:15 Last Admin: 09/25/16 13:33 Dose: 200 mcg Misoprostol (Cytotec) 200 mcg PO ONETIME ONE Stop: 09/25/16 15:24 Last Admin: 09/25/16 16:09 Dose: Not Given - Exam General: alert, oriented HEENT: Mucous membr. moist/pink Neck: supple Lungs: Clear to auscultation, Normal respiratory effort Cardiovascular: Regular Rate, Regular Rhythm Abdomen: bowel sounds present, soft, no tenderness, no distension (Female) Exam: Other (uterus less tender) Back Exam: normal inspection, full range of motion Extremities: no edema Skin: warm, dry, intact Wound/Incisions: healing well Neurological: no new focal deficit Psy/Mental Status: alert, normal affect, normal mood - Problem List & Annotations (1) Puerperal endometritis, condition or complication SNOMED Code(s): 063089885 Code(s): O86.12 - ENDOMETRITIS FOLLOWING DELIVERY Status: Acute Current Visit: Yes (2) Pyrexia, puerperal Status: Acute Current Visit: Yes - Problem List Review Problem List Initiated/Reviewed/Updated: No - My Orders Last 24 Hours: My Active Orders 09/25/16 12:40 CULTURE GENITAL [RM] Stat 09/25/16 13:13 Blood Culture x2 Reflex Set [OM.PC] Stat 09/25/16 13:28 CULTURE BLOOD [BC] Stat 09/25/16 13:36 CULTURE BLOOD [BC] Stat 09/25/16 15:23 Communication Order [RC] ASDIRECTED Height and Weight [RC] 04 Intake and Output [RC] 04,16 Vital Signs [RC] Q4HR Acetaminophen [Tylenol] 650 mg PO Q4H PRN Ondansetron [Zofran] 4 mg IVPUSH Q4H PRN Blood Culture x2 Reflex Set [OM.PC] Stat 09/25/16 17:45 Lactated Ringers [Ringers, Lactated] 1,000 ml IV ASDIRECTED 09/25/16 18:22 Antiembolic Devices [RC] PER UNIT ROUTINE SCD [Sequential Compression Device] [OM.PC] Routine 09/25/16 21:00 Misoprostol [Cytotec] 200 mcg PO Q6H 09/25/16 Dinner Regular Diet [DIET] 09/26/16 09:00 Vit with Ca/FA/Iron [ Plus Iron] 1 each PO DAILY cefOXitin [Mefoxin in Dextrose,Iso-Osm 2 GM/50 ML] 2 gm Premix Bag 1 bag IV Q6H - Assessment Assessment:: Add probiotics Continue Mefoxin 2 grams IV q6g possibly po antibiotics tomorrow possibly home Tuesday - Plan Plan:: Ad[place] [place] [facility] to confirm admission vs Observation) IV hydration and antibiotic treatment
[2016-09-26] MEDS: Saccharomyces Boulardii (Probiotic) 250 MG Cap PO SCH ×2 (12:05→20:45)
[2016-09-27] MEDS: cefOXitin 2 GM in Premix Bag 1 BAG IV SCH ×2 (03:03→08:25)
[2016-09-27] MEDS: Misoprostol 200 MCG Tab PO SCH ×2 (03:04→08:26)
[2016-09-27] MEDS: Saccharomyces Boulardii (Probiotic) 250 MG Cap PO SCH ×2 (08:26→20:29)
[2016-09-27] MEDS: Prenatal Multivitamin with Calcium/Folic Acid/Iron Tab PO SCH (08:26)
--- NOTE | 2016-09-27 08:35 | PCM.PN ---
- General Info Date of Service: 09/27/16 Functional Status: Reports: pain controlled - Review of Systems General: Reports: Fever (last evening 100.9 decreased from day before of 101.3) HEENT: Reports: no symptoms Pulmonary: Reports: no symptoms Cardiovascular: Reports: No Symptoms Gastrointestinal: Reports: No symptoms Genitourinary: Reports: pain (c/o less pain in area of uterus) Musculoskeletal: Reports: no symptoms Skin: Reports: no symptoms Neurological: Reports: No Symptoms Psychiatric: Reports: no symptoms - Patient Data Vitals - most recent: Last Vital Signs Temp 98.4 F 09/27/16 07:54 Pulse 101 H 09/27/16 07:54 Resp 16 09/27/16 07:54 BP 99/72 09/27/16 07:54 Pulse Ox 99 09/27/16 07:54 Weight - most recent: 158 lb 9.6 oz I&O - last 24 hours: Intake & Output 09/26/16 09/27/16 09/27/16 22:59 06:59 14:59 Intake Total 1050 900 Output Total 900 1100 Balance 150 -200 Lab Results last 24 hrs: Laboratory Results - last 24 hr 09/26/16 09/27/16 Range/Units 10:57 05:45 WBC 8.14 7.64 (3.98-10.04) K/mm3 RBC 4.31 4.39 (3.98-5.22) M/mm3 Hgb 13.1 13.2 (11.2-15.7) gm/L Hct 38.5 39.2 (34.1-44.9) % MCV 89.3 89.3 (79.4-94.8) fl MCH 30.4 30.1 (25.6-32.2) pg MCHC 34.0 33.7 (32.2-35.5) g/dl RDW Std Deviation 41.4 41.7 (36.4-46.3) fL Plt Count 193 205 (182-369) K/mm3 MPV 9.1 L 9.2 L (9.4-12.3) fl Neut % (Auto) 69.7 70.1 (34.0-71.1) % Lymph % (Auto) 19.9 18.6 L (19.3-51.7) % [place] % (Auto) 9.8 9.9 (4.7-12.5) % Eos % (Auto) 0.4 L 1.0 (0.7-5.8) Baso % (Auto) 0.2 0.3 (0.1-1.2) % Neut # (Auto) 5.67 5.35 (1.56-6.13) K/mm3 Lymph # (Auto) 1.62 1.42 (1.18-3.74) K/mm3 [place] # (Auto) 0.80 H 0.76 H (0.24-0.36) K/mm3 Eos # (Auto) 0.03 L 0.08 (0.04-0.36) K/mm3 Baso # (Auto) 0.02 0.02 (0.01-0.08) K/mm3 [place] Results last 24 hrs: Microbiology 09/25/16 13:36 Aerobic Blood Culture - Preliminary Blood - Venous - Lab Draw Beta Streptococcus Group B Anaerobic Blood Culture - Preliminary NO GROWTH AFTER 1 DAY 09/25/16 13:28 Aerobic Blood Culture - Preliminary Blood - Venous NO GROWTH AFTER 1 DAY Anaerobic Blood Culture - Preliminary NO GROWTH AFTER 1 DAY Med Orders - Current: Current Medications Acetaminophen (Tylenol) 650 mg PO Q4H PRN PRN Reason: Fever Last Admin: 09/26/16 19:20 Dose: 650 mg Ondansetron HCl (Zofran) 4 mg IVPUSH Q4H PRN PRN Reason: Nausea Prenat Multivit/[place]/Iron/Folic Ac ( Plus Iron) 1 each PO DAILY [facility] Last Admin: 09/27/16 08:26 Dose: Not Given Saccharomyces Boulardii (Florastor) 250 mg PO BID [facility] Last Admin: 09/27/16 08:26 Dose: 250 mg Discontinued Medications Cefoxitin Sodium 2 gm/ Sodium (Chloride) 100 mls @ 200 mls/hr IV ONETIME ONE Stop: 09/25/16 13:27 Last Admin: 09/25/16 16:09 Dose: Not Given Lactated Ringer's (Ringers, Lactated) 500 mls @ 500 mls/hr IV .BOLUS ONE Stop: 09/25/16 14:14 Last Admin: 09/25/16 13:34 Dose: 500 mls/hr Cefoxitin Sodium 2 gm/ Premix 50 mls @ 100 mls/hr IV ONETIME ONE Stop: 09/25/16 14:01 Last Admin: 09/25/16 13:43 Dose: 100 mls/hr Lactated Ringer's (Ringers, Lactated) 500 mls @ 500 mls/hr IV .BOLUS ONE Stop: 09/25/16 16:22 Last Admin: 09/25/16 16:08 Dose: Not Given Cefoxitin Sodium 2 gm/ Sodium (Chloride) 100 mls @ 200 mls/hr IV Q6H [facility] Last Admin: 09/25/16 21:11 Dose: Not Given Lactated Ringer's (Ringers, Lactated) 1,000 mls @ 150 mls/hr IV ASDIRECTED [facility] Last Admin: 09/26/16 08:30 Dose: 150 mls/hr Cefoxitin Sodium 2 gm/ Premix 50 mls @ 100 mls/hr IV Q6HR [facility] Last Admin: 09/25/16 21:03 Dose: 100 mls/hr Cefoxitin Sodium 2 gm/ Premix 50 mls @ 100 mls/hr IV Q6HR [facility] Cefoxitin Sodium 2 gm/ Premix 50 mls @ 100 mls/hr IV Q6HR [facility] Cefoxitin Sodium 2 gm/ Premix 50 mls @ 100 mls/hr IV Q6HR [facility] Last Admin: 09/26/16 06:40 Dose: Not Given Cefoxitin Sodium 2 gm/ Premix 50 mls @ 100 mls/hr IV Q6HR [facility] Cefoxitin Sodium 2 gm/ Premix 50 mls @ 100 mls/hr IV Q6H [facility] Last Admin: 09/27/16 08:25 Dose: 100 mls/hr Misoprostol (Cytotec) 200 mcg PO ONETIME ONE Stop: 09/25/16 13:15 Last Admin: 09/25/16 13:33 Dose: 200 mcg Misoprostol (Cytotec) 200 mcg PO ONETIME ONE Stop: 09/25/16 15:24 Last Admin: 09/25/16 16:09 Dose: Not Given Misoprostol (Cytotec) 200 mcg PO Q6H [facility] Last Admin: 09/27/16 08:26 Dose: Not Given - Exam General: alert, oriented HEENT: Mucous membr. moist/pink Abdomen: bowel sounds present, soft, no tenderness, no distension (Female) Exam: Normal external exam, Normal speculum exam, Normal bimanual exam, Enlarged uterus (involuting normally), Uterine tenderness (almost gone much less tender than admission) Extremities: no edema Skin: warm, dry, intact Psy/Mental Status: alert, normal affect, normal mood - Problem List & Annotations (1) Puerperal endometritis, condition or complication SNOMED Code(s): 584282590 Code(s): O86.12 - ENDOMETRITIS FOLLOWING DELIVERY Status: Acute Current Visit: Yes (2) Pyrexia, puerperal Status: Acute Current Visit: Yes (3) Sepsis due to group B Streptococcus SNOMED Code(s): 784841185 Code(s): A40.1 - SEPSIS DUE TO STREPTOCOCCUS, GROUP B Status: Acute Current Visit: Yes - Problem List Review Problem List Initiated/Reviewed/Updated: No - My Orders Last 24 Hours: My Active Orders 09/26/16 09:00 Vit with Ca/FA/Iron [ Plus Iron] 1 each PO DAILY 09/26/16 11:00 Saccharomyces Boulardii [Florastor] 250 mg PO BID 09/26/16 11:26 Code Status [Resuscitation Status] Routine 09/27/16 08:30 cefOXitin [Mefoxin in Dextrose,Iso-Osm 1 GM/50 ML] 1 gm Premix Bag 1 bag IV Q6H 09/28/16 10:57 CBC WITH AUTO DIFF [HEME] DAILY - Assessment Assessment:: Add probiotics Continue Mefoxin 2 grams IV q6g possibly po antibiotics tomorrow possibly home Tuesday - Plan Plan:: [place] [place] [facility] to confirm admission vs Observation) IV hydration and antibiotic treatment Decrease Mefoxin to 1 gram IV q6h and stop cytotec
[2016-09-27] MEDS: cefOXitin 1 GM in Premix Bag 1 BAG IV SCH ×3 (10:05→20:28)
[2016-09-28] MEDS: cefOXitin 1 GM in Premix Bag 1 BAG IV SCH (03:23)
--- NOTE | 2016-09-28 06:49 | PCM.SN ---
- Free Text/Narrative Note: Afebrile, discontinue Mefoxin and begin Keflex 500 mg po q6h. No heavy vaginal bleeding, abdomen soft, uterus tenderness decreasing and no leg pain.
[2016-09-28] MEDS: Saccharomyces Boulardii (Probiotic) 250 MG Cap PO SCH (10:43)
[2016-09-28] MEDS: Prenatal Multivitamin with Calcium/Folic Acid/Iron Tab PO SCH (10:43)
[2016-09-28] MEDS: Cephalexin 500 MG Cap PO SCH ×2 (11:11→16:53)
[2016-09-28 13:08] VITALS: BP 96/56
--- NOTE | 2016-09-28 16:38 | PCM.DCSUM1 ---
Discharge Summary - Hospital Course Free Text/Narrative:: Fever resolved with Mefoxin IV initially then po Keflex 500 mg q6h continue for 9 days at home HPI Initial Comments: Fever resolved with Mefoxin IV initially then po Keflex 500 mg q6h continue for 9 days at home Brief History: Fever resolved with Mefoxin IV initially then po Keflex 500 mg q6h continue for 9 days at home - Discharge Data Discharge Date: 09/28/16 Discharge Disposition: Home, Self-Care 01 Condition: Good - Discharge Diagnosis/Problem(s) (1) Puerperal endometritis, condition or complication SNOMED Code(s): 999680341 ICD Code: O86.12 - ENDOMETRITIS FOLLOWING DELIVERY Status: Acute Current Visit: Yes (2) Pyrexia, puerperal Status: Acute Current Visit: Yes (3) Sepsis due to group B Streptococcus SNOMED Code(s): 696688429 ICD Code: A40.1 - SEPSIS DUE TO STREPTOCOCCUS, GROUP B Status: Acute Current Visit: Yes - Patient Summary/Data Complications: none Consults: none Hospital Course: uneventful - Patient Instructions Diet: Heart Healthy Diet Driving: May Drive Today Showering/Bathing: May Shower Notify Provider of: Fever, Increased Pain, Swelling and Redness, Drainage, Nausea and/or Vomiting - Discharge Plan Prescriptions/Med Rec: Cephalexin [IJD: Cephalexin] 500 mg PO Q6HR #36 capsule Fluconazole [Diflucan] 150 mg PO ASDIRECTED #2 tablet Saccharomyces Boulardii [Probiotic] 250 mg PO DAILY #30 capsule Home Medications: Home Meds Vit No.124/Iron/FA [ Vitamin Tablet] 1 each PO DAILY 03/07/15 [ History] Acetaminophen [Tylenol] 650 mg PO Q4H PRN #0 tablet 09/28/16 [Rx] Cephalexin [IJD: Cephalexin] 500 mg PO Q6HR #36 capsule 09/28/16 [Rx] Fluconazole [Diflucan] 150 mg PO ASDIRECTED #2 tablet 09/28/16 [Rx] Saccharomyces Boulardii [Probiotic] 250 mg PO DAILY #30 capsule 09/28/16 [Rx] Forms: ED Department Discharge Referrals: Cody Banks MD [Primary Care Provider] - (See Dr Cueva in 4 weeks) Reddy Cueva MD [Physician] - (see Dr Cueva in 4 weeks) - Discharge Summary/Plan Comment DC Time >30 min.: No - Patient Data Vitals - Most Recent: Last Vital Signs Temp 97.9 F 09/28/16 12:05 Pulse 85 09/28/16 12:05 Resp 16 09/28/16 12:05 BP 96/56 L 09/28/16 12:05 Pulse Ox 98 09/28/16 12:05 Weight - Most Recent: 154 lb 9.6 oz I&O - Last 24 hours: Intake & Output 09/28/16 09/28/16 09/28/16 06:59 14:59 22:59 Intake Total 1050 560 Output Total 650 Balance 400 560 Lab Results - Last 24 hrs: Laboratory Results - last 24 hr 09/28/16 Range/Units 06:25 WBC 4.57 (3.98-10.04) K/mm3 RBC 4.39 (3.98-5.22) M/mm3 Hgb 13.3 (11.2-15.7) gm/L Hct 39.4 (34.1-44.9) % MCV 89.7 (79.4-94.8) fl MCH 30.3 (25.6-32.2) pg MCHC 33.8 (32.2-35.5) g/dl RDW Std Deviation 42.4 (36.4-46.3) fL Plt Count 213 (182-369) K/mm3 MPV 9.3 L (9.4-12.3) fl Neut % (Auto) 46.7 (34.0-71.1) % Lymph % (Auto) 38.1 (19.3-51.7) % [place] % (Auto) 10.9 (4.7-12.5) % Eos % (Auto) 3.9 (0.7-5.8) Baso % (Auto) 0.4 (0.1-1.2) % Neut # (Auto) 2.13 (1.56-6.13) K/mm3 Lymph # (Auto) 1.74 (1.18-3.74) K/mm3 [place] # (Auto) 0.50 H (0.24-0.36) K/mm3 Eos # (Auto) 0.18 (0.04-0.36) K/mm3 Baso # (Auto) 0.02 (0.01-0.08) K/mm3 [facility] Results - Last 24 hrs: Microbiology 09/25/16 13:36 Aerobic Blood Culture - Final Blood - Venous - Lab Draw Beta Streptococcus Group B Anaerobic Blood Culture - Preliminary NO GROWTH AFTER 3 DAYS 09/25/16 13:28 Aerobic Blood Culture - Preliminary Blood - Venous NO GROWTH AFTER 3 DAYS Anaerobic Blood Culture - Preliminary NO GROWTH AFTER 3 DAYS Med Orders - Current: Current Medications Acetaminophen (Tylenol) 650 mg PO Q4H PRN PRN Reason: Fever Last Admin: 09/26/16 19:20 Dose: 650 mg Cephalexin (Keflex) 500 mg PO Q6HR [facility] Last Admin: 09/28/16 11:11 Dose: 500 mg Ondansetron HCl (Zofran) 4 mg IVPUSH Q4H PRN PRN Reason: Nausea Prenat Multivit/[place]/Iron/Folic Ac ( Plus Iron) 1 each PO DAILY [facility] Last Admin: 09/28/16 10:43 Dose: Not Given Saccharomyces Boulardii (Florastor) 250 mg PO BID [facility] Last Admin: 09/28/16 10:43 Dose: 250 mg Discontinued Medications Cefoxitin Sodium 2 gm/ Sodium (Chloride) 100 mls @ 200 mls/hr IV ONETIME ONE Stop: 09/25/16 13:27 Last Admin: 09/25/16 16:09 Dose: Not Given Lactated Ringer's (Ringers, Lactated) 500 mls @ 500 mls/hr IV .BOLUS ONE Stop: 09/25/16 14:14 Last Admin: 09/25/16 13:34 Dose: 500 mls/hr Cefoxitin Sodium 2 gm/ Premix 50 mls @ 100 mls/hr IV ONETIME ONE Stop: 09/25/16 14:01 Last Admin: 09/25/16 13:43 Dose: 100 mls/hr Lactated Ringer's (Ringers, Lactated) 500 mls @ 500 mls/hr IV .BOLUS ONE Stop: 09/25/16 16:22 Last Admin: 09/25/16 16:08 Dose: Not Given Cefoxitin Sodium 2 gm/ Sodium (Chloride) 100 mls @ 200 mls/hr IV Q6H [facility] Last Admin: 09/25/16 21:11 Dose: Not Given Lactated Ringer's (Ringers, Lactated) 1,000 mls @ 150 mls/hr IV ASDIRECTED [facility] Last Admin: 09/26/16 08:30 Dose: 150 mls/hr Cefoxitin Sodium 2 gm/ Premix 50 mls @ 100 mls/hr IV Q6HR [facility] Last Admin: 09/25/16 21:03 Dose: 100 mls/hr Cefoxitin Sodium 2 gm/ Premix 50 mls @ 100 mls/hr IV Q6HR [facility] Cefoxitin Sodium 2 gm/ Premix 50 mls @ 100 mls/hr IV Q6HR [facility] Cefoxitin Sodium 2 gm/ Premix 50 mls @ 100 mls/hr IV Q6HR [facility] Last Admin: 09/26/16 06:40 Dose: Not Given Cefoxitin Sodium 2 gm/ Premix 50 mls @ 100 mls/hr IV Q6HR [facility] Cefoxitin Sodium 2 gm/ Premix 50 mls @ 100 mls/hr IV Q6H [facility] Last Admin: 09/27/16 08:25 Dose: 100 mls/hr Cefoxitin Sodium 1 gm/ Premix 50 mls @ 100 mls/hr IV Q6H [facility] Last Admin: 09/28/16 03:23 Dose: 100 mls/hr Misoprostol (Cytotec) 200 mcg PO ONETIME ONE Stop: 09/25/16 13:15 Last Admin: 09/25/16 13:33 Dose: 200 mcg Misoprostol (Cytotec) 200 mcg PO ONETIME ONE Stop: 09/25/16 15:24 Last Admin: 09/25/16 16:09 Dose: Not Given Misoprostol (Cytotec) 200 mcg PO Q6H [facility] Last Admin: 09/27/16 08:26 Dose: Not Given *Q Meaningful Use (DIS) - VTE *Q VTE Criteria *Q: - Stroke *Q Stroke Criteria *Q: - AMI *Q AMI Criteria *Q:
== END 2016-09-28 17:00 | disposition home or self-care (01) | DRG 248 ==
LOC: JD.ED 11:38 → JD.MS 12:46
PROVIDERS: ADMIT Obstetrics & Gynecology; ATTEND Obstetrics & Gynecology
DX: A04.1 Enterotoxigenic Escherichia coli infection (principal); O85 Puerperal sepsis; B95.1 Streptococcus, group B, as the cause of diseases classified elsewhere
CPT/HCPCS: 36415; 85025; 87040; 87070; 87077; 87186; 87210; 87808; 96361; 96365; 99284-25; 99285-25; A9270-GY; J0694; J7120